=== PATIENT | male | born 1970 | race American Indian/Alaskan Native ===

== ENCOUNTER 2018-08-18 13:16 | Inpatient (IN) | payer MEDICAID ==
[2018-08-18 13:28] VITALS: BMI 22.5
[2018-08-18] MEDS ORDERED: TDAP Vaccine 0.5 mL Syr IM ONE (13:41)
[2018-08-18 14:01] LABS: URINE BILIRUBIN SMALL (NEGATIVE); URINE BLOOD NEGATIVE (NEGATIVE); URINE GLUCOSE (UA) NEGATIVE (NEGATIVE); URINE LEUKOCYTE ESTERASE NEGATIVE Leu/uL (NEGATIVE); URINE PROTEIN TRACE mg/dL (<30 mg/dL); URINE UROBILINOGEN 0.2 E.U./dL (<1 E.U./dL)
[2018-08-18 14:02] LABS: URINE APPEARANCE CLEAR (CLEAR); URINE COLOR YELLOW (YELLOW)
[2018-08-18 14:12] LABS: URINE BACTERIA FEW (NEG); URINE RBC NEGATIVE /hpf (0-2); URINE WBC 0 - 2 /hpf (0-6)
[2018-08-18 14:30] LABS: BARBITURATES, UR NEGATIVE (NEGATIVE); BENZODIAZEPINES, UR POSITIVE (NEGATIVE); OPIATES, UR POSITIVE (NEGATIVE); PHENCYCLIDINE, UR NEGATIVE (NEGATIVE)
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
--- NOTE | 2018-08-18 15:02 | CT ---
Date of service: 08/18/2018 PROCEDURE: CT MAXILLOFACIAL BONES WITHOUT CONTRAST HISTORY: left orbital tenderness COMPARISON: None available. TECHNIQUE: Contiguous axial CT images of the maxillofacial bones were obtained. Coronal and sagittal reformats were generated. Radiation dose: Total exam DLP = 797.85 mGy-cm. This CT exam was performed using one or more of the following dose reduction techniques: Automated exposure control, adjustment of the mA and/or kV according to patient size, and/or use of iterative reconstruction technique. FINDINGS: NASAL BONES: Unremarkable. ORBITS: Unremarkable. PARANASAL SINUSES/ MASTOIDS: Clear. MAXILLA: Unremarkable. MANDIBLE/ TEMPOROMANDIBULAR JOINTS: Unremarkable. SKULL BASE: Unremarkable. TEMPORAL BONES: Middle ears and mastoid grossly unremarkable. OTHER FINDINGS: None. IMPRESSION: Unremarkable non contrast enhanced CT of the maxillofacial bones.
--- NOTE | 2018-08-18 15:05 | RAD ---
Date of service: 08/18/2018 PROCEDURE: Radiographs of the left elbow. HISTORY: elbow pain COMPARISON: No prior. FINDINGS: BONES: Normal. No fracture. JOINTS: Normal. No osteoarthritis. SOFT TISSUES: Soft tissue swelling adjacent to the olecranon. JOINT EFFUSION: None. OTHER FINDINGS: None IMPRESSION: Soft tissue swelling without acute articular or osseous abnormality.
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
[2018-08-18 15:42] LABS: BASO # 0.02 K/mm3 (0.0-2.0); BASO % 0.2 % (0.0-3.0); EOS # 0.1 (0.0-0.7); EOS % 1.1 % (1.5-5.0); GRAN # 9.46 (1.4-6.5); GRAN % 81.4 % (50.0-68.0); HEMOGLOBIN 12.7 g/dL (14.0-18.0); LYMPH # 1.5 (1.2-3.4); MEAN CELL VOLUME 90.6 fl (80.0-105.0); MEAN CORPUSCULAR HEMOGLOBIN 31.4 pg (25.0-35.0); MEAN CORPUSCULAR HGB CONC 34.6 g/dl (31.0-37.0); MEAN PLATELET VOLUME 8.7 fl (7.0-11.0); MONO # 0.5 (0.1-0.6); MONO % 4.3 % (1.0-6.0); RBC 4.05 10^6/uL (3.5-6.1); RED CELL DISTRIBUTION WIDTH 13.5 % (11.5-14.5); WHITE BLOOD COUNT 11.6 10^3/uL (4.5-11.0)
[2018-08-18 15:46] LABS: INR 1.26; PARTIAL THROMBOPLASTIN TIME 26.9 Seconds (25.1-36.5); PROTHROMBIN TIME 14.4 SECONDS (9.4-12.5)
[2018-08-18 15:53] LABS: ALBUMIN 4.3 g/dL (3.0-4.8); ALT/SGPT 60 U/L (7-56); AST/SGOT 74 U/L (17-59); BLOOD UREA NITROGEN 16 mg/dL (7-21); CALCIUM 9.2 mg/dL (8.4-10.5); GFR NON-AFRICAN AMERICAN > 60
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
[2018-08-18] MEDS ORDERED: Piperacill/Tazo 4.5gm in NS 4.5 GM/100 ML BAG IVPB STA (19:11)
[2018-08-18] MEDS ORDERED: Vancomycin 1gm in NS 250ml 1 GM/250 ML BAG IVPB STA (19:32)
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
[2018-08-18] MEDS ORDERED: Multivitamin (MVI) 10 ML, Thiamine 100 MG, Folic Acid 1 MG in Sodium Chloride 0.9% 1,00... IV ONE (22:01)
[2018-08-19] MEDS: Piperacillin/Tazobact 3.375 gm 100 ML IVPB SCH ×3 (03:48→22:33)
[2018-08-19 07:06] LABS: BASO # 0.02 K/mm3 (0.0-2.0); BASO % 0.2 % (0.0-3.0); EOS # 0.1 (0.0-0.7); EOS % 0.6 % (1.5-5.0); GRAN # 9.8 (1.4-6.5); GRAN % 82.1 % (50.0-68.0); HEMOGLOBIN 12.9 g/dL (14.0-18.0); LYMPH # 1.3 (1.2-3.4); LYMPH % 11.1 % (22.0-35.0); MEAN CELL VOLUME 92.1 fl (80.0-105.0); MEAN CORPUSCULAR HEMOGLOBIN 30.9 pg (25.0-35.0); MEAN CORPUSCULAR HGB CONC 33.6 g/dl (31.0-37.0); MEAN PLATELET VOLUME 9.1 fl (7.0-11.0); MONO # 0.7 (0.1-0.6); RBC 4.17 10^6/uL (3.5-6.1); RED CELL DISTRIBUTION WIDTH 13.8 % (11.5-14.5); WHITE BLOOD COUNT 11.9 10^3/uL (4.5-11.0)
[2018-08-19 07:29] LABS: ALT/SGPT 47 U/L (7-56); AST/SGOT 54 U/L (17-59); BLOOD UREA NITROGEN 14 mg/dL (7-21); CALCIUM 8.8 mg/dL (8.4-10.5); GFR NON-AFRICAN AMERICAN > 60
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
[2018-08-19] MEDS ORDERED: Multivitamin (MVI) 10 ML, Thiamine 100 MG, Folic Acid 1 MG in Sodium Chloride 0.9% 1,00... IV ONE (10:46)
--- NOTE | 2018-08-19 11:22 | RAD ---
Date of service: 08/18/2018 HISTORY: cough COMPARISON: Chest CT 08/18/2018. FINDINGS: LUNGS: Patchy reticular infiltrate at the left lower lobe is better seen in chest CT 08/18/2018 than the current radiographs though suspected in the current exam. Remaining lung reveles are clear. PLEURA: No significant pleural effusion identified, no pneumothorax apparent. CARDIOVASCULAR: No aortic atherosclerotic calcification present. Normal cardiac size. No pulmonary vascular congestion. OSSEOUS STRUCTURES: No significant abnormalities. VISUALIZED UPPER ABDOMEN: Normal. OTHER FINDINGS: None. IMPRESSION: Subtle changes in the left base correspond to reticular infiltrates at the left base better seen in separate chest CT 12 18 than the current radiograph series. Examination otherwise unremarkable.
[2018-08-19 17:21] LABS: HEPATITIS B SURFACE AG Negative (NEGATIVE)
[2018-08-19 17:27] LABS: HEPATITIS A IGM NEGATIVE (NEGATIVE); HEPATITIS B CORE AB NEGATIVE (NEGATIVE)
[2018-08-19 18:51] LABS: HEPATITIS C ANTIBODY REACTIVE (NEGATIVE)
--- NOTE | 2018-08-19 19:49 | CON ---
DATE: 08/19/2018 The patient is seen earlier today in room 561, bed #1. CHIEF COMPLAINT: Weakness. HISTORY OF PRESENT ILLNESS: This is a 48-year-old male with history of schizophrenia, positive HIV, bipolar, history of IV heroin use, diabetes mellitus who is admitted with a diagnosis of aspiration pneumonia. Infectious Disease consultation requested. The patient is a poor historian at this time and there is low-grade fevers reported. PAST MEDICAL HISTORY: Significant for positive HIV, bipolar, diabetes mellitus, IV heroin use. PAST SURGICAL HISTORY: Noncontributory. ALLERGIES: THE PATIENT HAS NO KNOWN ALLERGIES. MEDICATIONS AT HOME: Include Lexapro, zanamivir, and trazodone. REVIEW OF SYSTEMS: Reveals no chest pain, minimal cough. No abdominal pain. No diarrhea or constipation, history of frequency. No headaches. PHYSICAL EXAMINATION: GENERAL: The patient is in bed in no acute distress. VITAL SIGNS: Temperature of 99, blood pressure is 120/80, respiratory rate of 20, heart rate of 76. HEENT: Examination of HEENT is unremarkable. NECK: Supple. CARDIOPULMONARY: Normal S1 and S2. LUNGS: Have decreased breath sounds. ABDOMEN: Soft. LABORATORY DATA: Laboratory examination reveals a white count of 11,600, hemoglobin of 12, platelets of 239. Chemistries reveals a BUN of 16, creatinine of 0.6. LFTs are elevated. Procalcitonin is 0.21. Urinalysis is noted. There is a verbal report that the patient's T-cells was 600 approximately a year ago. CAT scan of the chest shows an infiltrate. Chest x-ray shows an infiltrate . The CAT scan of the abdomen is unremarkable. ASSESSMENT AND PLAN: This is a 48-year-old male with positive human immunodeficiency virus, schizophrenia, bipolar, diabetes, intravenous heroin user, admitted with left lower lobe community-acquired pneumonia in face of active intravenous drug abuse both treated with vancomycin and Zosyn, pending repeat procalcitonin and T-cell studies, HIV, PCR, cryptococcal antigen, QuantiFERON, and the blood and sputum cultures, MRSA screen and Legionella urine antigen. The patient started on doxycycline, vancomycin and Zosyn. Toxicology is positive for alcohol, opiates, benzodiazepine, cocaine. We will make further recommendations upon availability of initial results. Félix Haywood MD [facility] # [id number]
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
[2018-08-20] MEDS: Piperacillin/Tazobact 3.375 gm 100 ML IVPB SCH ×3 (06:39→22:50)
[2018-08-20 07:28] LABS: BASO # 0.01 K/mm3 (0.0-2.0); BASO % 0.2 % (0.0-3.0); EOS # 0.1 (0.0-0.7); EOS % 2.1 % (1.5-5.0); GRAN # 4.15 (1.4-6.5); GRAN % 62.3 % (50.0-68.0); HEMOGLOBIN 13.3 g/dL (14.0-18.0); LYMPH # 1.9 (1.2-3.4); LYMPH % 29.2 % (22.0-35.0); MEAN CELL VOLUME 92.4 fl (80.0-105.0); MEAN CORPUSCULAR HEMOGLOBIN 30.8 pg (25.0-35.0); MEAN CORPUSCULAR HGB CONC 33.3 g/dl (31.0-37.0); MEAN PLATELET VOLUME 9.4 fl (7.0-11.0); MONO # 0.4 (0.1-0.6); MONO % 6.2 % (1.0-6.0); RBC 4.32 10^6/uL (3.5-6.1); RED CELL DISTRIBUTION WIDTH 13.6 % (11.5-14.5); WHITE BLOOD COUNT 6.7 10^3/uL (4.5-11.0)
[2018-08-20 07:56] LABS: ALB/GLOB RATIO 0.9 (1.1-1.8); ALBUMIN 3.8 g/dL (3.0-4.8); ALT/SGPT 41 U/L (7-56); AST/SGOT 51 U/L (17-59); BLOOD UREA NITROGEN 13 mg/dL (7-21); CALCIUM 8.8 mg/dL (8.4-10.5); GFR NON-AFRICAN AMERICAN > 60
[2018-08-20] MEDS: Multivitamin With Minerals Tab PO SCH (08:11)
[2018-08-20] MEDS: Vancomycin 1gm in NS 250ml 1 GM/250 ML BAG IVPB SCH (09:23)
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
--- NOTE | 2018-08-20 14:03 | CP.PCM.PN ---
Subjective - Date & Time of Evaluation Date of Evaluation: 08/20/18 Time of Evaluation: 09:10 - Subjective Subjective: Not in distress, no fevers, no nausea, no abdominal pain, no SOB at rest. Objective - Vital Signs/Intake and Output Vital Signs (last 24 hours): Temp Pulse Resp BP Pulse Ox 98.4 F 68 18 140/92 H 94 L 08/20/18 06:00 08/20/18 06:00 08/20/18 06:00 08/20/18 06:00 08/20/18 06:00 Intake and Output: 08/20/18 08/20/18 06:59 18:59 Intake Total 980 Balance 980 - Medications Medications: Current Medications Chlordiazepoxide (Librium) 25 mg PO Q8 [facility]; Protocol PRN Reason: Symptoms of alcohol withdrawl Last Admin: 08/20/18 08:11 Dose: 25 mg Famotidine (Pepcid) 40 mg PO HS [facility] Last Admin: 08/19/18 21:27 Dose: Not Given Folic Acid (Folic Acid) 1 mg PO DAILY [facility] Doxycycline Hyclate 100 mg/ (Sodium Chloride) 100 mls @ 100 mls/hr IVPB Q12 [facility]; Protocol Last Admin: 08/19/18 21:23 Dose: 100 mls/hr Vancomycin HCl (Vancomycin 1gm) 1 gm in 250 mls @ 167 mls/hr IVPB DAILY [facility]; Protocol Piperacillin Sod/Tazobactam Sod (Zosyn 3.375 In Ns 100ml) 100 mls @ 25 mls/hr IVPB Q8 [facility]; Protocol Stop: 08/28/18 22:01 Last Admin: 08/20/18 06:39 Dose: 25 mls/hr Lorazepam (Ativan) 2 mg IVP Q4 [facility]; Protocol PRN Reason: Symptoms of alcohol withdrawl Last Admin: 08/20/18 06:38 Dose: 2 mg Multivitamins/Minerals (Therapeutic-M Tab) 1 tab PO 0800 [facility] Last Admin: 08/20/18 08:11 Dose: 1 tab Quetiapine Fumarate (Seroquel) 100 mg PO HS [facility]; Protocol Thiamine HCl (Vitamin B1 Tab) 100 mg PO DAILY [facility] Trazodone HCl (Desyrel) 100 mg PO HS [facility] - Labs Labs: 08/20/18 06:45 12/07/18 06:45 PT 14.4 SECONDS (9.4-12.5) H 08/18/18 15:32 INR 1.26 08/18/18 15:32 APTT 26.9 Seconds (25.1-36.5) 08/18/18 15:32 - Constitutional Appears: Chronically Ill - Head Exam Head Exam: NORMAL INSPECTION - Respiratory Exam Respiratory Exam: Decreased Breath Sounds - Cardiovascular Exam Cardiovascular Exam: +S1, +S2 - GI/Abdominal Exam GI & Abdominal Exam: Soft. absent: Tenderness Assessment and Plan - Assessment and Plan (Free Text) Plan: Assessment left lower lobe community-acquired pneumonia and aspiration in a patient with chronic alcohol and polysubstance abuse bipolar disorder schizophrenia chronic HIV infection Plan continue Vancomycin, Zosyn and Doxycycline day 2 pending final culture results follow up HIV VL, T-cell count, RPR, serum Crypt Ag will monitor clinically
--- NOTE | 2018-08-20 20:33 | PN ---
DATE: 08/20/2018 SUBJECTIVE: In short, the patient is a 48-year-old male with history of mental illness, bipolar, polysubstance abuse and dependence. The patient was seen on the medical side yesterday and today he will follow up. Yesterday, the patient presented to be lethargic and confused. Today, the patient is more responsive but he will appears to be confused. The patient does not know how he ended up in the hospital, was not aware what hospital he is in. The patient reported that he hears voices, reported that he has no thought of harming himself or others. Discussed with ID team today. Antiretroviral medications would be considered. PHYSICAL EXAMINATION: VITAL SIGNS: Stable. Temperature 99.4, pulse 66, blood pressure 132/90, respirations 20, and oxygen saturation is 96. MENTAL STATUS EXAM: The patient presented to be confused, malodorous, poor hygiene, and intermittent eye contact. Mood described as okay. Affect was constricted. Thought process disorganized. Thought content, the patient reported to hear voices and voices telling him to prove himself. Insight and judgment seems to be limited. Impulses are not predictable. MEDICATIONS: Reviewed. Medical team started Seroquel 100 mg schedule as well as trazodone agree with that. LABORATORY DATA: Labs reviewed. Leukocytosis is going down. Chemistry reviewed. Toxicology was positive for benzodiazepines, cocaine as well as opioids. The patient has history of detox rehabs, recently signed himself out of [facility]. IMPRESSION: The patient most likely is in delirium stage, she has a history of polysubstance abuse and dependence. The patient also has a history of human immunodeficiency virus as well as schizoaffective disorder. PLAN: Seroquel was started. Trazodone was started as needed medications. Follow up with Dr. Obrien over the weekend. Thank you very much for letting me to participate in the care of your patient. Erica Ramirez MD
[2018-08-21] MEDS: Piperacillin/Tazobact 3.375 gm 100 ML IVPB SCH ×3 (05:07→22:26)
[2018-08-21 07:59] LABS: BASO # 0.02 K/mm3 (0.0-2.0); BASO % 0.4 % (0.0-3.0); EOS # 0.2 (0.0-0.7); EOS % 3.1 % (1.5-5.0); GRAN # 3.16 (1.4-6.5); GRAN % 60.5 % (50.0-68.0); LYMPH # 1.4 (1.2-3.4); MEAN CELL VOLUME 92.7 fl (80.0-105.0); MEAN CORPUSCULAR HEMOGLOBIN 30.7 pg (25.0-35.0); MEAN CORPUSCULAR HGB CONC 33.2 g/dl (31.0-37.0); MEAN PLATELET VOLUME 8.8 fl (7.0-11.0); MONO # 0.5 (0.1-0.6); RBC 4.23 10^6/uL (3.5-6.1); RED CELL DISTRIBUTION WIDTH 13.6 % (11.5-14.5); WHITE BLOOD COUNT 5.2 10^3/uL (4.5-11.0)
[2018-08-21 08:25] LABS: ALBUMIN 3.8 g/dL (3.0-4.8); ALT/SGPT 41 U/L (7-56); AST/SGOT 44 U/L (17-59); BLOOD UREA NITROGEN 11 mg/dL (7-21); GFR NON-AFRICAN AMERICAN > 60
[2018-08-21] MEDS: Vancomycin 1gm in NS 250ml 1 GM/250 ML BAG IVPB SCH (10:49)
[2018-08-21] MEDS: Multivitamin With Minerals Tab PO SCH (11:00)
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
[2018-08-21 15:44] LABS: % CD4 (T HELPER CELL) 25 Percent (30-61); % CD8 (SUPPRESSOR T CELL) 44 Percent (12-42); ABSOLUTE CD4 CELLS 263 Cells/mcL (490-1740); ABSOLUTE CD8 CELLS 460 Cells/mcL (180-1170); ABSOLUTE LYMPHOCYTES 1045 Cells/mcL (850-3900); HELPER/SUPPRESSOR RATIO 0.57 Ratio (0.86-5.00)
--- NOTE | 2018-08-21 20:52 | CON ---
DATE: 08/21/2018 HISTORY OF PRESENT ILLNESS: The patient is a 48-year-old male with history of bipolar disorder, polysubstance abuse and dependence who was seen by Dr. Ramirez on the medical floor. I reviewed her consultation, met with the patient at bedside as well as reviewed recent notes. The patient is demonstrating increased alertness and that she is at [facility]; however, he does not know what month or year it is, indicates that it is 07/2020. The patient reports that he is not doing "really good." The patient feels nauseated , he is depressed, he is not suicidal. He also indicated hears hallucinations, voices are telling that they are going to get him. The patient denies having any thoughts of harming himself or others, but does present as disorganized and paranoid at times, rambling and need for directions during my questioning. His insight and judgment are considerably poor. MEDICATIONS: Relevant psychiatric medications include trazodone 100 mg at bedtime, Seroquel 100 mg at bedtime, Ativan 2 mg IV every 4 hours p.r.n., and 50 mg p.o. every 8 hours scheduled. IMPRESSION: Schizoaffective disorder, polysubstance abuse and dependence, substance-induced disorder, substance-induced psychotic disorder and likely constipation with delirium. RECOMMENDATIONS: I will increase Seroquel to 125 mg at bedtime and 25 mg daily to help with hallucination. Trazodone will be continued at 100 mg at bedtime and Ativan will be mostly continued, tapering Librium and Ativan as needed for withdrawal. Psychiatry will continue to followup. Next follow up will be 08/22/2018. Shari Obrein MD
[2018-08-21 22:19] VITALS: RESP 18
--- NOTE | 2018-08-22 03:46 | PN ---
DATE: 08/21/2018 SUBJECTIVE: The patient is in bed, in no acute distress, nontoxic. PHYSICAL EXAMINATION: VITAL SIGNS: Temperature is 99, blood pressure is 130/80, respiratory rate of 18. HEENT: Unremarkable. NECK: Supple. LUNGS: Have decreased breath sounds. HEART: Normal S1, S2. ABDOMEN: Soft. LABORATORY EXAMINATION: Reveals a white count of 5.2, hemoglobin of 13, BUN of 11, creatinine of 1. Toxicology is noted. Immunology is reviewed. Serology is noted. T cells are reviewed. Microbiology reveals the blood cultures are negative, and throat cultures negative. ASSESSMENT AND PLAN: A 48-year-old male who is seen earlier today in [facility], bed 1 with lower lobe community-acquired pneumonia, aspiration, and the patient with chronic alcohol and polysubstance abuse as well as human immunodeficiency virus, bipolar, schizophrenia, on vancomycin, Zosyn, doxycycline day #3, and the patient appears to be improving with CD4 percent at 25% and absolute count of 263, less likely to be a DCP, and then procalcitonin is negative x2, less likely to be bacterial pneumonia and urine Legionella is also negative. Hepatitis B is negative, and human immunodeficiency virus-polymerase chain reaction is undetectable with urinalysis unremarkable with nasal methicillin-resistant Staphylococcus aureus is not detected. The sputum culture is pending, and the blood cultures no growth, on doxycycline, vancomycin, and peperacillin. We will discontinue the vancomycin for now. Negative blood cultures, and nasal methicillin-resistant Staphylococcus aureus screen negative. Maybe able to switch to p.o. antibiotics. We will follow with you. The patient has been afebrile. They had a CAT scan of the chest and abdomen. Félix Haywood MD
--- NOTE | 2018-08-22 05:51 | PCM.FALL ---
<Dulce Tariq - Last Filed: 08/22/18 05:47> Post Fall Progress Note - Post Fall Fall Date: 08/22/18 Fall Time: 05:40 Description of Fall: Patient was coming out of the restroom with the help of the MA, when they both tripped, causing patient to land on the MA as per MA. As per patient he hit the right side of his head against the wall, and is currently having head ache. Vitals were reviewed, O2 sat 96% on room air, HR 60s, SBP in the 120s. Denies dizziness, or lightheadedness. - Post Fall Exam Vital Sign: Temp Pulse Resp BP Pulse Ox 99.4 F 55 L 18 139/86 98 08/21/18 22:18 08/21/18 22:18 08/21/18 22:18 08/21/18 22:18 08/21/18 22:18 Skull Exam: Negative for: Scalp wound, Scalp hematoma, Scalp depression, Ridge in skull Eye Exam: Positive for: Pupils equal Ear Exam: Negative for: Discharge, Bleeding Nose Exam: Negative for: Bleeding Skin Exam: Negative for: Lacerations, Bruising Mouth Exam: Negative for: Tongue bitten, Teeth dislodge Neck Exam: Negative for: Tenderness, Tingling, Weakness Spinal Exam: Negative for: Tenderness, Tingling, Weakness Chest Exam: Negative for: Tenderness in collar bones, Tenderness in ribs Abdomen Exam: Negative for: Tenderness Pelvic Exam: Negative for: Tenderness, Hematuria Arm Exam: Negative for: Deformity, Alteration in range of movement Leg Exam: Negative for: Deformity, Alteration in range of movement Impression/Plan: Vitals stable, fall likely due to gait instability. Will order CT of the head Continue to monitor 1:1 bed side cammode Bed rest <Elizabeth Ceballos - Last Filed: 08/22/18 06:39> Post Fall Progress Note - Post Fall Exam Vital Sign: Temp Pulse Resp BP Pulse Ox 99.4 F 55 L 18 139/86 98 08/21/18 22:18 08/21/18 22:18 08/21/18 22:18 08/21/18 22:18 08/21/18 22:18 Attending/Attestation - Attestation I have personally seen and examined this patient.: No I have fully participated in the care of the patient.: No I have reviewed all pertinent clinical information, including history, physical exam and plan: No
[2018-08-22] MEDS: Piperacillin/Tazobact 3.375 gm 100 ML IVPB SCH (06:31)
[2018-08-22] MEDS: Multivitamin With Minerals Tab PO SCH (08:38)
[2018-08-22 08:51] LABS: BASO # 0.02 K/mm3 (0.0-2.0); BASO % 0.4 % (0.0-3.0); EOS # 0.2 (0.0-0.7); EOS % 3.3 % (1.5-5.0); GRAN # 3.09 (1.4-6.5); GRAN % 56.2 % (50.0-68.0); HEMOGLOBIN 12.4 g/dL (14.0-18.0); LYMPH # 1.8 (1.2-3.4); LYMPH % 32.5 % (22.0-35.0); MEAN CELL VOLUME 92.6 fl (80.0-105.0); MEAN CORPUSCULAR HEMOGLOBIN 30.7 pg (25.0-35.0); MEAN CORPUSCULAR HGB CONC 33.2 g/dl (31.0-37.0); MEAN PLATELET VOLUME 8.6 fl (7.0-11.0); MONO # 0.4 (0.1-0.6); MONO % 7.6 % (1.0-6.0); RBC 4.04 10^6/uL (3.5-6.1); RED CELL DISTRIBUTION WIDTH 13.7 % (11.5-14.5); WHITE BLOOD COUNT 5.5 10^3/uL (4.5-11.0)
[2018-08-22 09:29] LABS: ALBUMIN 3.7 g/dL (3.0-4.8); ALT/SGPT 33 U/L (7-56); AST/SGOT 37 U/L (17-59); BLOOD UREA NITROGEN 13 mg/dL (7-21); CALCIUM 8.8 mg/dL (8.4-10.5); GFR NON-AFRICAN AMERICAN > 60
--- NOTE | 2018-08-22 09:29 | CT ---
Date of service: 08/22/2018 PROCEDURE: CT HEAD WITHOUT CONTRAST. HISTORY: s/p fall COMPARISON: 08/18/2018 TECHNIQUE: Axial computed tomography images were obtained through the head/brain without intravenous contrast. Radiation dose: Total exam DLP = 900.21 mGy-cm. This CT exam was performed using one or more of the following dose reduction techniques: Automated exposure control, adjustment of the mA and/or kV according to patient size, and/or use of iterative reconstruction technique. FINDINGS: HEMORRHAGE: No intracranial hemorrhage. BRAIN: No mass effect or edema. No atrophy or chronic microvascular ischemic changes. VENTRICLES: Unremarkable. No hydrocephalus. CALVARIUM: Unremarkable. PARANASAL SINUSES: Unremarkable as visualized. No significant inflammatory changes. MASTOID AIR CELLS: Unremarkable as visualized. No inflammatory changes. OTHER FINDINGS: The report concurs with the preliminary [facility] report IMPRESSION: No acute intracranial findings
[2018-08-22] MEDS: levoFLOXacin 500 MG TAB PO SCH (13:26)
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
--- NOTE | 2018-08-22 19:10 | CON ---
DATE: 08/22/2018 HISTORY OF PRESENT ILLNESS: The patient is a 48-year-old male with a history of bipolar disorder, rule out schizoaffective disorder, polysubstance abuse dependence, likely PTSD. He has been in the psychiatric medical floor due to hallucinations, disorganization,disorientation. I met this patient at bedside today again. He still continues to be demonstrating at times, though can be redirected, disorientation still appears to be an issue and does not known the current month or year. However, he has been in the hospital. He is having nightmares, flashback, apparently when he was in [place]. He also appears . Although, the patient was planning to be discharged. According to staff notes, he is willing to sign into the psychiatric unit as he wanted to be medically cleared. The patient is little disorganized and I cannot predict whether he will continue to be in agreement, however,that is the current plan at this time. Patient will definitely benefit from further psychiatric stabilization. Insight and judgement are considered to be poor at this time. Vital and labs were reviewed. MEDICATIONS: Relevant psychiatric medications include trazodone 100 mg at bedtime,Seroquel 25 mg in the a.m. and 125 at bedtime, Ativan p.r.n. as well as Librium as scheduled. IMPRESSION: Likely schizoaffective disorder, polysubstance abuse dependence, likely substance abuse, mood disorder, substance abuse psychiatric disorder, and contribution of delirium. RECOMMENDATIONS: I will continue Seroquel at 125 mg at bedtime, however, increase the dose to 325 mg p.o. b.i.d. during the day to help with stability. Trazodone will be continued at 100 mg at bedtime. I will also start Paxil 10 mg at bedtime for depression and flashback. I have opted not to go with Zoloft or Prozac or Lexapro as these medications can be activating to an individual, though he does have some PTSD. I will optimize Paxil to help with anxiety, sleep, and impulse control. The plan is for the patient to sign into the psychiatric unit once he is medically clear. Although, we do not have any beds right now till Thursday morning and should be a discharged and he should be medically clear today. Shari Obrien MD [facility] # [id number]
--- NOTE | 2018-08-22 19:11 | PN ---
DATE: 08/22/2018 SUBJECTIVE: The patient is in bed, no acute distress, nontoxic, no fevers. PHYSICAL EXAMINATION: VITAL SIGNS: Temperature is 98, blood pressure is 130/80, and respiratory rate of 18. HEENT: Unremarkable. NECK: Supple. LUNGS: Have decreased breath sounds. HEART: Normal S1 and S2. ABDOMEN: Soft and nontender. LABORATORY EXAMINATION: Reveals a white count of 5.5, hemoglobin of 12, and platelets of 289. Chemistries reveal a BUN of 13, creatinine of 0.9. Procalcitonin is 0.09. Urinalysis is noted. Immunology is noted. Serology is reviewed. ASSESSMENT AND PLAN: A 48-year-old male who is seen earlier today in room 561, who had a CAT scan of the head today read by Dr. Enrike Camilo, no acute changes, and note is reviewed. This is a 48-year-old male who is admitted with lower lobe community-acquired pneumonia in a patient with chronic alcoholism, polysubstance abuse as well as positive for human immunodeficiency disease, bipolar schizophrenia, on day #4 of doxycycline with the T-cells above 200 at 25% T4. PCP is less likely, urine legionella antigen is negative. The patient did have a CAT scan of the chest and CAT scan of the abdomen which revealed nodular opacity in the left lower lobe. The patient will have a pulmonary evaluation. CAT scan of the abdomen is unremarkable. The patient did not have any fevers. Discontinue the intravenous doxycycline. The patient's nares is negative for methicillin-resistant Staphylococcus aureus and legionella is negative. May use oral doxycycline if necessary. The patient did not have an EKG. We will discontinue the doxycycline and the Zosyn and complete the oral Levaquin. Should have a pulmonary evaluation regarding nodules and workup which may be done as an outpatient. Félix Haywood MD
[2018-08-23 07:07] LABS: BASO # 0.01 K/mm3 (0.0-2.0); BASO % 0.2 % (0.0-3.0); EOS # 0.1 (0.0-0.7); EOS % 3.1 % (1.5-5.0); GRAN # 2.49 (1.4-6.5); GRAN % 54.9 % (50.0-68.0); HEMOGLOBIN 13.4 g/dL (14.0-18.0); LYMPH # 1.4 (1.2-3.4); LYMPH % 31.7 % (22.0-35.0); MEAN CORPUSCULAR HEMOGLOBIN 30.6 pg (25.0-35.0); MEAN CORPUSCULAR HGB CONC 33.3 g/dl (31.0-37.0); MEAN PLATELET VOLUME 8.6 fl (7.0-11.0); MONO # 0.5 (0.1-0.6); MONO % 10.1 % (1.0-6.0); RBC 4.38 10^6/uL (3.5-6.1); RED CELL DISTRIBUTION WIDTH 13.6 % (11.5-14.5); WHITE BLOOD COUNT 4.5 10^3/uL (4.5-11.0)
[2018-08-23 07:30] LABS: ALB/GLOB RATIO 0.9 (1.1-1.8); ALBUMIN 3.8 g/dL (3.0-4.8); ALT/SGPT 45 U/L (7-56); AST/SGOT 51 U/L (17-59); BLOOD UREA NITROGEN 14 mg/dL (7-21); CALCIUM 9.3 mg/dL (8.4-10.5); GFR NON-AFRICAN AMERICAN > 60
[2018-08-23] MEDS: levoFLOXacin 500 MG TAB PO SCH (10:51)
[2018-08-23] MEDS: Multivitamin With Minerals Tab PO SCH (10:52)
[2018-08-23 14:27] VITALS: BP 114/68; PULSE 74; TEMP 98.6; O2SAT 94
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
--- NOTE | 2018-08-23 19:18 | CP.PCM.PN ---
Subjective - Date & Time of Evaluation Date of Evaluation: 08/23/18 Time of Evaluation: 08:25 - Subjective Subjective: Afebrile, not in distress. Objective - Vital Signs/Intake and Output Vital Signs (last 24 hours): Temp Pulse Resp BP Pulse Ox 98.1 F 64 18 130/84 96 08/22/18 06:00 08/22/18 06:00 08/22/18 06:00 08/22/18 06:00 08/22/18 06:00 - Medications Medications: Current Medications Chlordiazepoxide (Librium) 25 mg PO Q8 [facility]; Protocol Last Admin: 08/22/18 21:20 Dose: 25 mg Famotidine (Pepcid) 40 mg PO HS [facility] Last Admin: 08/22/18 21:20 Dose: 40 mg Folic Acid (Folic Acid) 1 mg PO DAILY [facility] Last Admin: 08/22/18 09:22 Dose: 1 mg Levofloxacin (Levaquin) 500 mg PO DAILY [facility]; Protocol Stop: 08/27/18 12:01 Last Admin: 08/22/18 13:26 Dose: 500 mg Lorazepam (Ativan) 2 mg IVP Q6 PRN; Protocol PRN Reason: Agitation Last Admin: 08/22/18 21:18 Dose: 2 mg Multivitamins/Minerals (Therapeutic-M Tab) 1 tab PO 0800 [facility] Last Admin: 08/22/18 08:38 Dose: 1 tab Nicotine (Nicoderm Cq) 1 patch TD DAILY [facility] Last Admin: 08/22/18 16:24 Dose: 1 patch Paroxetine HCl (Paxil) 10 mg PO HS [facility] Last Admin: 08/22/18 21:20 Dose: 10 mg Quetiapine Fumarate (Seroquel) 100 mg PO HS [facility]; Protocol Last Admin: 08/22/18 21:21 Dose: 100 mg Quetiapine Fumarate (Seroquel) 25 mg PO HS [facility] Last Admin: 08/22/18 21:21 Dose: 25 mg Quetiapine Fumarate (Seroquel) 25 mg PO BID [facility]; Protocol Last Admin: 08/22/18 17:13 Dose: 25 mg Thiamine HCl (Vitamin B1 Tab) 100 mg PO DAILY [facility] Last Admin: 08/22/18 09:22 Dose: 100 mg Trazodone HCl (Desyrel) 100 mg PO HS [facility] Last Admin: 08/22/18 21:19 Dose: 100 mg Ziprasidone (Geodon Inj) 10 mg IM DAILY PRN; Protocol PRN Reason: Agitation Last Admin: 08/22/18 20:40 Dose: 10 mg - Labs Labs: 08/22/18 08:15 08/22/18 08:15 PT 14.4 SECONDS (9.4-12.5) H 08/18/18 15:32 INR 1.26 08/18/18 15:32 APTT 26.9 Seconds (25.1-36.5) 08/18/18 15:32 - Constitutional Appears: Chronically Ill - Head Exam Head Exam: NORMAL INSPECTION - Respiratory Exam Respiratory Exam: Decreased Breath Sounds - Cardiovascular Exam Cardiovascular Exam: +S1, +S2 - GI/Abdominal Exam GI & Abdominal Exam: Soft. absent: Tenderness Assessment and Plan - Assessment and Plan (Free Text) Plan: Assessment left lower lobe community-acquired pneumonia and aspiration in a patient with chronic alcohol and polysubstance abuse bipolar disorder schizophrenia chronic HIV infection Plan continue Levaquin day 5 to complete up to 7 days of therapy follow up Pulmonary evaluation of nodularity seen in the left lower lobe HIV VL is not detected and T-cell count is 263 -follow up 4th generation HIV test
--- NOTE | 2018-08-23 20:01 | CON ---
DATE: 08/23/2018 HISTORY OF PRESENT ILLNESS: The patient is a 48-year-old male with a history of bipolar disorder, likely schizoaffective disorder, polysubstance abuse and dependence, and PTSD. The patient has been followed by Psychiatry on medical floor due to hallucinations, disorganization,and disorientation. This provider has been meeting with the patient on a daily basis, and he continues to have hallucinations, although they appear to be improved a little bit since the initiation and titration of Seroquel. He denies having any suicidal thoughts or homicidal thoughts, but has anxiety and depression. He is not currently hallucinating. He is currently tolerating his medication and there have been no major behavioral issues, though he has been anxious about either being discharged or transferred to the psychiatric unit. I have discussed to transfer to the psychiatric unit for further stabilization and the patient continues to agree. His insight and judgement are considered to be fair at this time. Vital signs and labs are reviewed. RELEVANT PSYCHIATRIC MEDICATIONS: Include trazodone 100 mg at bedtime, Seroquel 25 mg in the a.m. and 125 at bedtime, Ativan p.r.n., and Librium as scheduled. IMPRESSION: Likely schizoaffective disorder with polysubstance abuse and dependence, resolving delirium, and posttraumatic stress disorder. RECOMMENDATIONS: I will continue with aforementioned medications. The patient is agreeable to go to the psychiatric unit and appears to be medically cleared at this time and agreeable for a voluntary transfer. at this time. Shari Obrien MD
== END 2018-08-23 16:14 | DRG 79 ==
LOC: ED 13:16 → ERH 19:31 → 5RNO 23:02
PROVIDERS: ADMIT Internal Medicine; ATTEND Internal Medicine
PROC: 3E0234Z Introduction of Serum, Toxoid and Vaccine into Muscle, Percutaneous Approach (ICD-10-PCS; principal; 2018-08-18)
DX: J69.0 Pneumonitis due to inhalation of food and vomit (principal); F10.231 Alcohol dependence with withdrawal delirium; F25.9 Schizoaffective disorder, unspecified; F14.151 Cocaine abuse with cocaine-induced psychotic disorder with hallucinations; Z21 Asymptomatic human immunodeficiency virus [HIV] infection status; E11.9 Type 2 diabetes mellitus without complications; F31.9 Bipolar disorder, unspecified; F43.10 Post-traumatic stress disorder, unspecified; K59.00 Constipation, unspecified; K76.0 Fatty (change of) liver, not elsewhere classified; M81.0 Age-related osteoporosis without current pathological fracture; R04.0 Epistaxis; S00.01XA Abrasion of scalp, initial encounter; Y04.0XXA Assault by unarmed brawl or fight, initial encounter; W01.198A Fall on same level from slipping, tripping and stumbling with subsequent striking against other object, initial encounter; Z23 Encounter for immunization

== ENCOUNTER 2018-08-23 16:00 | Inpatient (IN) | payer MEDICAID ==
[2018-08-19 07:40] VITALS: BMI 22.5
[2018-08-23] MEDS ORDERED: Alum-Mag Hydrox-Simethicone Susp (30 mL) PO PRN (17:31)
[2018-08-23] MEDS ORDERED: Magnesium Hydroxide Susp 30 ml UD PO PRN (17:31)
--- NOTE | 2018-08-23 21:04 | PCM.BM ---
<Aby Hodgson - Last Filed: 08/23/18 21:01> Treatment Plan Problems - Problems identified on initial assessmt INEFFECTIVE COPING SKILLS Date Initiated: 08/23/18 Time Initiated: 20:00 Assessment reference: NA Status: Active Priority: 1 ANXIETY R/T SUBSTANCE USE Date Initiated: 08/23/18 Time Initiated: 20:00 Assessment reference: NA Status: Active Priority: 2 KNOWLEDGE DEFICIT A[place]OHOL USE Date Initiated: 08/23/18 Time Initiated: 20:00 Assessment reference: NA Status: Active Priority: 3 Treatment assets and liabiliti Patient Assests: cognitively intact, cooperative, ADL independent Patient Liabilities: live alone, financial problems, poor support system, substance abuse - Milieu Protocol Maintain good personal hygiene: daily Encourage regular showers, daily Remind patient to perform daily oral care, daily Assist patient to perform ADL's Maintain personal safety: every shift Educate patient to report safety concerns to staff, every shift Monitor environment for contraband/sharps Medication safety: Monitor for expected outcome, potential side effects: every shift, Assess barriers to learning: every shift, Assess readiness for medication education: every shift Discharge/Continuing Care - Education Needs Education Needs: Patient Medication, Patient Diagnosis/Disease Process, Patient Coping Skills, Patient Placement options, Patient Community resources, Patient Activities of Daily Living, Patient Pain, Patient Nutrition, Patient Health Practices/Safety, Patient Personal Hygiene/Grooming, Patient Aftercare Safety Plan - Discharge Discharge Criteria: Tolerates medication w/o severe side effects, Free of Suicidal thoughts, Free of agitation, Normal sleep pattern, Ability to care for self, No longer exhibiting s/s of withdrawal, Reduction of target symptoms Discharge to:: [facility] <Salome Devine - Last Filed: 08/26/18 15:39> Family Contact Family involvement: Famliy/SO not involved
[2018-08-23] MEDS: QUEtiapine 100 MG, QUEtiapine 25 MG PO SCH (22:48)
[2018-08-24 07:10] VITALS: RESP 20
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
[2018-08-24] MEDS: Multivitamin With Minerals Tab PO SCH (09:11)
[2018-08-24] MEDS: levoFLOXacin 500 MG TAB PO SCH (09:14)
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
[2018-08-24] MEDS: QUEtiapine 100 MG, QUEtiapine 25 MG PO SCH (21:28)
[2018-08-25] MEDS: levoFLOXacin 500 MG TAB PO SCH (08:56)
[2018-08-25] MEDS: Multivitamin With Minerals Tab PO SCH (08:57)
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
[2018-08-26] MEDS: levoFLOXacin 500 MG TAB PO SCH (10:01)
[2018-08-26] MEDS: Multivitamin With Minerals Tab PO SCH (10:01)
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
[2018-08-27 07:08] VITALS: BP 118/72; PULSE 78; TEMP 98.8
== END 2018-08-27 08:24 | disposition home or self-care (01) | DRG 430 ==
LOC: PSYC 16:00
PROVIDERS: ADMIT Psychiatry & Neurology Psychiatry; ATTEND Psychiatry & Neurology Psychiatry
DX: F25.0 Schizoaffective disorder, bipolar type (principal); J69.0 Pneumonitis due to inhalation of food and vomit; F14.20 Cocaine dependence, uncomplicated; F32.2 Major depressive disorder, single episode, severe without psychotic features; Z21 Asymptomatic human immunodeficiency virus [HIV] infection status; E11.9 Type 2 diabetes mellitus without complications; F43.10 Post-traumatic stress disorder, unspecified; F12.10 Cannabis abuse, uncomplicated; F17.210 Nicotine dependence, cigarettes, uncomplicated; R91.1 Solitary pulmonary nodule